=== PATIENT | female | born 1960 | race African-American/Black ===

== ENCOUNTER 2020-06-16 18:09 | Emergency (ER) | payer MEDICAID ==
[~2020-06-16] VITALS: Ht 177.8 cm; Wt 109.3 kg
--- NOTE | 2020-06-16 18:22 | NUR ---
ED Nurse Note: Pt walked in from home using cane c/o insect bite on left foot with pain and swelling. Respirations even and unlabored on room air. Vitals stable as documented. AOx4, speaking in complete sentences.
[2020-06-16 18:23] VITALS: BP 133/71
[2020-06-16] MEDS ORDERED: Ketorolac 30mg Inj IM ONE (18:30)
[2020-06-16] MEDS ORDERED: Lidocaine 1% MPF 10mg/ml 5ml INJ ONE (18:30)
--- NOTE | 2020-06-16 18:41 | Emergency Room Report ---
History of Present Illness General Chief Complaint: Skin Rash/Abscess Source: Patient Present Illness HPI 59-year-old female with no significant past medical history here complaining of 1 week of left foot pain and swelling. Reports that she does not know how and when it started however believes that she might have been bit by a spider. Erythema noted dorsum of left foot cellulitic changes noted. Patient denies any fall or injury. Has full range of motion of foot. Denies tingling or numbness. Patient is neurovascularly intact. Denies calf tenderness. Has not taken medication for symptom relief. Denies fever and chills. Denies nausea vomiting. Allergies: Coded Allergies: No Known Allergies (Unverified , 06/16/20) COVID-19 Screening Contact w/high risk pt: No Experienced COVID-19 symptoms?: No COVID-19 Testing performed PHOTOGRAPHER'S MODEL: No Patient History Past Medical History: see triage record Past Surgical History: none Pertinent Family History: none Now: No Immunizations: UTD Reviewed Nursing Documentation: PMH: Agreed; PSxH: Agreed Nursing Documentation-PMH Past Medical History: No History, Except For Hx Hypertension: Yes Review of Systems All Other Systems: negative except mentioned in HPI Physical Exam Vital Signs Date Time Temp Pulse Resp B/P (MAP) Pulse Ox O2 Delivery O2 Flow Rate FiO2 06/16/20 18:14 97.0 111 20 124/75 (91) 98 Room Air Sp02 EP Interpretation: reviewed, normal General Appearance: no apparent distress, alert, GCS 15, non-toxic Head: normocephalic, atraumatic Eyes: bilateral eye normal inspection, bilateral eye PERRL ENT: hearing grossly normal, normal pharynx, no angioedema, normal voice Neck: full range of motion, supple/symm/no masses Respiratory: chest non-tender, lungs clear, normal breath sounds, speaking full sentences Cardiovascular #1: regular rate, rhythm, no edema Cardiovascular #2: 2+ dorsalis pedis (R), 2+ dorsalis pedis (L) Gastrointestinal: soft Musculoskeletal: back normal, no calf tenderness, swelling - left foot, cellulitis Neurologic: alert, motor strength/tone normal, oriented x3, sensory intact, responsive, speech normal Psychiatric: judgement/insight normal, memory normal, mood/affect normal, no suicidal/homicidal ideation Skin: other - cellulitis left foot Lymphatic: no adenopathy Medical Decision Making PASCUAL Attestation All diagnoses and treatment plans were reviewed and discussed with my supervising physician Dr. Sheets Diagnostic Impression: Primary Impression: Cellulitis of foot ER Course 59-year-old female with no significant past medical history here complaining of 1 week of left foot pain and swelling. Reports that she does not know how and when it started however believes that she might have been bit by a spider. Erythema noted dorsum of left foot cellulitic changes noted. Patient denies any fall or injury. Has full range of motion of foot. Denies tingling or numbness. Patient is neurovascularly intact. Denies calf tenderness. Has not taken medication for symptom relief. Denies fever and chills. Denies nausea vomiting. Ddx considered but are not limited to : Cellulitis, sprain, superficial infection, abscess Vital signs: are WNL, pt. is afebrile H&PE are most consistent with: ORDERS: Keflex, ibuprofen, prednisone, foot x-ray ED INTERVENTIONS: Toradol IM, Rocephin IM, DISCHARGE: At this time pt. is stable for d/c to home. Will provide printed patient care instructions, and any necessary prescriptions. Care plan and follow up instructions have been discussed with the patient prior to discharge. Other X-Ray Diagnostic Results Other X-Ray Diagnostic Results : X-Ray ordered: Left foot # of Views/Limited Vs Complete: 3 View Indication: Swelling EP Interpretation: Yes PA Xray: Interpretation reviewed, by supervising MD, and agrees with findings. Interpretation: no dislocation, no fractures Impression: No acute disease Electronically Signed by: Con Fried PA-C Last Vital Signs Date Time Temp Pulse Resp B/P (MAP) Pulse Ox O2 Delivery O2 Flow Rate FiO2 06/16/20 18:23 97.6 75 20 133/71 97 Room Air Disposition: HOME, SELF-CARE Condition: Stable - ERASED Scripts Ibuprofen* (MOTRIN*) 600 Mg Tablet 600 MG ORAL Q6H PRN for For Pain, #30 TAB 0 Refills Prov: Con Chapa 06/16/20 Cephalexin* (KEFLEX*) 500 Mg Capsule 500 MG ORAL EVERY 6 HOURS for 7 Days, #28 CAP Prov: Con Chapa 06/16/20 Referrals: NON PHYSICIAN (PCP) Patient Instructions: Cellulitis, [id number] Additional Instructions: Take medication as directed, follow-up with your primary care provider, if worsening symptoms return to the emergency room Con Chapa Jun 16, 2020 18:41
--- NOTE | 2020-06-16 19:02 | NUR ---
ED Nurse Note: xray @ bedside
--- NOTE | 2020-06-16 19:07 | NUR ---
HAND-OFF: Report given to GERRY Guzmán. Pt in stable condition; plan of care endorsed.
[2020-06-16] MEDS ORDERED: CEPHALEXIN500 MG ORAL (19:09)
[2020-06-16] MEDS ORDERED: IBUPROFEN600 M1 ORAL (19:09)
[2020-06-16 19:12] VITALS: BP 139/83
--- NOTE | 2020-06-16 19:12 | NUR ---
ED Nurse Note: Pt cleared by health care Provider for discharge. DC instructions/prescription were given and explained to pt and verbalized understanding of teachings. All medical devices such as ID band removed. Pt is AAO x4, ambulatory and left with all personal belongings.
--- NOTE | 2020-06-16 19:43 | Diagnostic Imaging Report ---
EXAM: XR Left Foot Complete, 3 or More Views CLINICAL HISTORY: PAIN TECHNIQUE: Frontal, lateral and oblique views of the left foot. COMPARISON: No relevant prior studies available. FINDINGS: Bones/joints: Linear lucency through the medial hallux sesamoid. Otherwise no fracture identified within the foot. No dislocation. Soft tissues: Marked soft tissue edema dorsally. IMPRESSION: 1. Linear lucency through the medial hallux sesamoid. A nondisplaced fracture could have this appearance in the appropriate clinical setting. Correlate for point tenderness. 2. Marked soft tissue edema dorsally.
== END 2020-06-16 19:12 | disposition home or self-care (01) ==
LOC: EMR 18:34
DX: L03.116 Cellulitis of left lower limb (principal); I10 Essential (primary) hypertension
CPT/HCPCS: 73630; 96372; J0696; J1885; Z7502; 99283